=== PATIENT | female | born 2000 | race Asian ===

== ENCOUNTER 2024-01-06 03:39 | Emergency (ER) | payer OTHER ==
[~2024-01-06] VITALS: Ht 160 cm; Wt 49.9 kg
[2024-01-06 03:59] VITALS: BP_SYST 126; PULSE 83; RESP 16; TEMP 98.1; O2SAT 96
[2024-01-06] MEDS ORDERED: LIDOCAINE MPF 2% 5mL VIAL INJ ONE (04:30)
[2024-01-06] MEDS ORDERED: LIDOCAINE 1%, 20 ML MDV 20 ML ONE (04:34)
[2024-01-06] MEDS ORDERED: LIDOCAINE 1% 10 MG/ML, 20 ML MDV INJ ONE (04:45)
[2024-01-06] MEDS ORDERED: ACET-2634 PO (04:48)
[2024-01-06 05:18] VITALS: BP_SYST 126; PULSE 83; RESP 16; TEMP 98.1; O2SAT 96
== END 2024-01-06 05:03 | disposition home or self-care (01) ==
LOC: SED 03:39
DX: S61.214A Laceration without foreign body of right ring finger without damage to nail, initial encounter (principal); Z79.899 Other long term (current) drug therapy; W26.8XXA Contact with other sharp object(s), not elsewhere classified, initial encounter; Y93.89 Activity, other specified; Y92.89 Other specified places as the place of occurrence of the external cause; Y99.8 Other external cause status
CPT/HCPCS: 99282; J2001